=== PATIENT | male | born 1980 | race Caucasian/White ===

== ENCOUNTER → 2019-01-14 | Outpatient (CLI) | payer OTHER ==
[~2019-01-14] VITALS: Ht 188 cm; Wt 75.3 kg
[~2019-01-14] MED LIST: FLAGYL500 M1 PO; PROBIOTIC1 EAC1 PO
--- NOTE | 2019-01-16 11:07 | PATH ---
[facility] [place] [address] PATHOLOGY RPT PROCEDURE Name: LUIS MIGUEL DARLING Dina Room #: REG LISAJesus Dorman.#: [id number] ������������������ Admission: 01/14/19 ������������������ Date of : 82 Discharge: Report #: [id number] Path Case #: [id number] [facility] Accession Number: [id number] . 01 Material submitted: . PART A: colon - RANDOM BX R) COLON, R/O MICROSCOPIC COLITIS, IBS, INFECTIOUS COLITIS. Modifiers: right PART B: colon - RANDOM BX L) COLON R/O MICROSCOPIC COLITIS, IBS, INFECTIOUS COLITIS. Modifiers: left PART C: colon - BX POLYP SIGMOID COLON. Modifiers: sigmoid . 01 Clinical history: . Diarrhea Colon polyp, colitis A/B. Rule out infectious colitis, microscopic colitis, IBS . 02 Diagnosis: A. Large intestinal mucosa, random colon, endoscopic biopsy: - Mild active colitis, see comment. - Negative for dysplasia or malignancy. - Negative for microscopic colitis. . B. Large intestinal mucosa, random left colon, endoscopic biopsy: - Mild focal cryptitis. - Negative for dysplasia or malignancy. - Negative for microscopic colitis. . C. Polyp, sigmoid colon, endoscopic biopsy: - Hyperplastic polyp. - Negative for dysplasia. LBQ/01/15/2019 . 02 Comment: Examination shows active cryptitis as well as increased cellularity of the lamina propria within all the fragments sampled from the "right colon" and two of the fragments within the "left colon". Viral inclusions, granulomata, or surface ulcerations, crypt abscesses, or architectural abnormalities are not present. Findings may be suggestive of mild focal active colitis with the differential diagnosis including a self-limited episode of colitis, medication induced colitis, mild infectious-type of colitis, mild acute diverticulitis, as well as early inflammatory bowel disease. Please correlate clinically and follow-up as indicated. (IUV/db; 01/15/2019) . 02 Electronically signed: . Carmen Lima MD, Pathologist NPI- [id number] [place] [address] PATHOLOGY RPT PROCEDURE Name: LUIS MIGUEL DARLING Room #: REG SHANTHI Christian#: [id number] ������������������ Admission: 01/14/19 ������������������ Date of : 82 Discharge: Report #: [id number] Path Case #: [id number] . 01 Gross description: . A. The specimen is received in formalin, labeled "Darling, Luis Miguel, random BX R colon" and consists of multiple fragments of pink-godinez tissue measuring 1.4 x 1.0 x 0.3 cm in aggregate which are entirely submitted in A1. . B. The specimen is received in formalin, labeled "Luis Miguel Darling, random BX L colon" and consists of multiple fragments of pink-godinez tissue measuring 1.0 x 0.6 x 0.2 cm in aggregate which are entirely submitted in B1. . C. The specimen is received in formalin, labeled "Luis Miguel Darling, BX polyp sigmoid colon" and consists of a fragment of godinez tissue measuring 0.3 x 0.3 x 0.2 cm which is entirely submitted in C1. (SDY; 01/14/2019) SYU/SYU . 02 Pathologist provided ICD-10: K52.9, K63.5 . 02 CPT . 955200, 221124, 239502 Specimen Comment: A courtesy copy of this report has been sent to Specimen Comment: [phone], . Specimen Comment: Report sent to / DR HAN Performed at: [address], [place] [id number] MD Yobany Bermudez MD Phone: [phone] Performed at: [address] [id number] MD Carmen Lima MD Phone: [phone]
== END | disposition home or self-care (01) ==
LOC: GI 07:53
DX: K63.5 Polyp of colon (principal); K52.9 Noninfective gastroenteritis and colitis, unspecified; K62.89 Other specified diseases of anus and rectum; Z98.890 Other specified postprocedural states; Z88.2 Allergy status to sulfonamides
CPT/HCPCS: 62110; 62900